=== PATIENT | female | born 1955 | race Caucasian/White ===

== ENCOUNTER 2022-02-25 13:18 | Inpatient (IN) | payer MEDICARE, BC ==
[~2022-02-25] VITALS: Ht 162.6 cm; Wt 59.0 kg
--- NOTE | 2022-02-25 13:38 | NUR ---
BIBRA 99 FROM HOME, PT WAS TAKIN GOUT THE TRASH AND SHE SLIPPED AND FELL. GIVEN 50 MCG IV AND IM FENTANYL. +LEFT HIP SHORT/ ROTATED OUT. AWAITING MD AMEZQUITA.
--- NOTE | 2022-02-25 13:49 | NUR ---
X RAY AT BEDSIDE
[2022-02-25] MEDS ORDERED: ONDANSETRON HCL/PF 4 MG/2 ML VIAL IVP ONE (14:30)
[2022-02-25] MEDS ORDERED: MORPHINE SULFATE INJ 2 MG/ML DISP.SYRIN IV ONE (14:30)
[2022-02-25] MEDS ORDERED: IV NS 0.9% 1,000 ML BAG IV ONE (14:30)
[2022-02-25] MEDS ORDERED: ONDANSETRON HCL/PF 4 MG/2 ML VIAL ONE (14:45)
[2022-02-25] MEDS ORDERED: MORPHINE SULFATE INJ 4 MG/ML DISP.SYRIN ONE (14:45)
--- NOTE | 2022-02-25 14:50 | NUR ---
covid antigen swab done and sent to the lab
[2022-02-25] MEDS ORDERED: BUPR-54 PO (14:51)
[2022-02-25] MEDS ORDERED: ATOM100C2 PO (14:51)
[2022-02-25] MEDS ORDERED: TRAZ-257 PO (14:51)
[2022-02-25] MEDS ORDERED: ATOR10TA PO (14:51)
[2022-02-25 15:01] LABS: BASOPHILS % (AUTO) 0.6 % (0.0-2.0); EOSINOPHILS % (AUTO) 1.4 % (0.0-6.0); HEMATOCRIT 41 % (33-45); HEMOGLOBIN 13.3 g/dL (11.5-14.8); LYMPHOCYTES # (AUTO) 1.4 K/uL (0.8-4.8); LYMPHOCYTES % (AUTO) 21.7 % (20.0-44.0); MEAN CORPUSCULAR HGB CONC 33 g/dl (31.0-36.0); MEAN CORPUSCULAR VOLUME 88 fL (82-100); MONOCYTES # (AUTO) 0.3 K/uL (0.1-1.30); MONOCYTES % (AUTO) 5.2 % (2.0-12.0); NEUTROPHILS # (AUTO) 4.6 K/uL (1.8-8.9); NEUTROPHILS % (AUTO) 71.1 % (43.0-81.0); PLATELET COUNT (AUTO) 313 K/uL (150-450); RED BLOOD CELL COUNT(AUTO) 4.61 MIL/uL (4.0-5.2); WHITE BLOOD COUNT (AUTO) 6.4 K/uL (4.3-11.0)
[2022-02-25 15:16] LABS: ALBUMIN 3.7 g/dL (3.4-5.0); BILIRUBIN,DIRECT 0.1 mg/dL (0.0-0.2); BILIRUBIN,TOTAL 0.3 mg/dL (0.2-1.0); CALCIUM, SERUM 8.7 mg/dL (8.5-10.1); CREATININE 0.7 mg/dL (0.6-1.3); POTASSIUM 3.8 mmol/L (3.5-5.1)
[2022-02-25] MEDS ORDERED: HYDROMORPHONE 1 MG/1 ML DISP.SYRIN ONE (15:30)
[2022-02-25] MEDS ORDERED: HYDROMORPHONE INJ 2 MG/ML DISP.SYRIN IV ONE (16:00)
--- NOTE | 2022-02-25 16:28 | NUR ---
ROOM 320-2
--- NOTE | 2022-02-25 17:02 | NUR ---
REPORT GIVEN TO NURSE MONTANO FOR RU
--- NOTE | 2022-02-25 17:47 | NUR ---
THE PATIENT IS TRANSFERED TO [facility] IN STABLE CONDITION AND PER ACLS POLICY.
--- NOTE | 2022-02-25 18:25 | NUR ---
RN NOTE PATIENT CAME TO UNIT VIA GURNEY WITH NO SIGNS OF DISTRESS FROM ER. REPORT RECEIVED FROM ER NURSE. PATIENT AWAKE IN BED RESTING. A/O X 4. V/S TAKEN, STABLE AND RECORDED T:98.3, P:94, R:20, BP:130/73, O2: 92%. PAIN LEVEL 9/10 NOTED AT THIS TIME, DOCTOR NOTIFIED. ON ROOM AIR, NO DISTRESS OR SHORTNESS OF BREATH NOTED. IV ACCESS LAC #18G, INTACT PATENT AND FLUSHING WELL. ORIENTED PATIENT TO ROOM SET-UP AND EDUCATED PATIENT ON THE USE OF CALL LIGHT. SKIN ASSESSMENT DONE, BRUISE ON LEFR ARM, BRUISE ON RIGHT ARM, PICTURES NEED TO BE TAKEN. FALL AND SAFETY MEASURES IN PLACE, BED ALARM ON, BED IN LOW AND LOCK POSITION, CALL LIGHT AND TABLE WITHIN EASY REACH, SIDE RAILS UP X2. PATIENT NPO AFTER MIDNIGHT FOR SURGERY TOMORROW, LEFT TOTAL HIP ARTHROPLASTY, CONSENT NEEDS TO BE SIGN. WILL CONTINUE TO MONITOR AND WILL ENDORSE TO NEXT SHIFT
[2022-02-25] MEDS ORDERED: MORPHINE SULFATE INJ 2 MG/ML DISP.SYRIN IV PRN (18:30)
[2022-02-25] MEDS ORDERED: IV D5/ 0.9% NACL 1,000 ML IV PRN (18:30)
[2022-02-25] MEDS ORDERED: ACETAMINOPHEN 325 MG TABLET PO PRN (18:30)
[2022-02-25] MEDS ORDERED: ONDANSETRON HCL/PF 4 MG/2 ML VIAL IVP PRN (18:30)
[2022-02-25 19:31] VITALS: BP 149/72
--- NOTE | 2022-02-25 19:35 | NUR ---
RN OPENING NOTE PATIENT AWAKE IN BED. A/OX4. NO S/S OF DISTRESS, BREATHING ON ROOM AIR WITHOUT DIFFICULTY. PAIN NOTED TO BE 10/10. NO PAIN MEDS ORDERED - ON-CALL CONTACTED. ICE PACK PUT IN PLACE FOR COMFORT AND PAIN RELIEF. LAC #18 SL INTACT AND PATENT. SAFETY MEASURES IN PLACE: BED LOCKED AND AT LOWEST POSITION, RAILS UP X2, CALL LEWIS WITHIN REACH. WILL CONTINUE TO MONITOR PATIENT.
[2022-02-25 20:00] VITALS: BP 141/69
[2022-02-25] MEDS ORDERED: HYDROMORPHONE INJ 2 MG/ML DISP.SYRIN IV PRN (21:00)
[2022-02-26] MEDS: HYDROMORPHONE INJ 2 MG/ML DISP.SYRIN IV PRN ×5 (00:05→23:23)
[2022-02-26 06:08] LABS: BASOPHILS % (AUTO) 0.3 % (0.0-2.0); EOSINOPHILS % (AUTO) 1.7 % (0.0-6.0); HEMATOCRIT 40 % (33-45); HEMOGLOBIN 13.6 g/dL (11.5-14.8); LYMPHOCYTES % (AUTO) 13.4 % (20.0-44.0); MEAN CORPUSCULAR HGB CONC 34 g/dl (31.0-36.0); MEAN CORPUSCULAR VOLUME 88 fL (82-100); MONOCYTES # (AUTO) 0.6 K/uL (0.1-1.30); MONOCYTES % (AUTO) 7.4 % (2.0-12.0); NEUTROPHILS % (AUTO) 77.2 % (43.0-81.0); PLATELET COUNT (AUTO) 283 K/uL (150-450); RED BLOOD CELL COUNT(AUTO) 4.57 MIL/uL (4.0-5.2); WHITE BLOOD COUNT (AUTO) 7.8 K/uL (4.3-11.0)
[2022-02-26 06:41] LABS: CALCIUM, SERUM 8.7 mg/dL (8.5-10.1); CREATININE 0.7 mg/dL (0.6-1.3); MAGNESIUM 1.8 mg/dL (1.8-2.4); PHOSPHORUS 3.6 mg/dL (2.5-4.9); POTASSIUM 3.7 mmol/L (3.5-5.1)
--- NOTE | 2022-02-26 07:07 | NUR ---
RN CLOSING NOTE PATIENT AWAKE IN BED. A/0X4. NO S/S OF DISTRESS, BREATHING WITHOUT DIFFICULTY ON ROOM AIR. LAC#18 SL INTACT AND PATENT. SAFETY MEASURES IN PLACE: BED LOCKED AND AT LOWEST POSITION, RAILS UP X2, CALL LEWIS WITHIN REACH. WILL ENDORSE TO NEXT SHIFT FOR RU.
--- NOTE | 2022-02-26 07:30 | NUR ---
RN OPENING NOTE PATIENT AWAKE IN BED RESTING. A/O X 4. PAIN LEVEL 3/10, PAIN MEDICATION GIVEN, ON ROOM AIR, NO DISTRESS OR SHORTNESS OF BREATH NOTED. IV ACCESS LAC #18G, INTACT, PATENT AND FLUSHING WELL. FALL AND SAFETY MEASURES IN PLACE, BED ALARM ON, BED IN LOW AND LOCK POSITION, CALL LIGHT AND TABLE WITHIN EASY REACH, SIDE RAILS UP X2. WILL CONTINUE TO MONITOR.
[2022-02-26 08:00] VITALS: BP 135/68
[2022-02-26] MEDS ORDERED: BUPIVACAINE 0.25% 75 MG/30 ML VIAL ONE (08:12)
--- NOTE | 2022-02-26 11:00 | NUR ---
RN NOTE PATIENT IS NOT IN HER ROOM, PATIENT WAS TAKEN FOR SURGERY (LEFT TOTAL HIP ARTHROPLASTY).
[2022-02-26] MEDS ORDERED: ROCURONIUM BROMIDE 50 MG/5 ML ONE (11:21)
[2022-02-26] MEDS ORDERED: FENTANYL PF 250MCG/5ML AMPUL ONE (11:21)
[2022-02-26] MEDS ORDERED: HYDROMORPHONE INJ 2 MG/ML DISP.SYRIN IV ONE (11:30)
[2022-02-26] MEDS ORDERED: TRANEXAMIC ACID 3,000 MG in SODIUM CHLORIDE IRRIG SOLUTION 70 ML IR ONE (12:00)
[2022-02-26] MEDS ORDERED: FENTANYL PF 100MCG/2ML AMPUL ONE (12:30)
[2022-02-26] MEDS ORDERED: HYDROCODONE/APAP 5/325MG TABLET PO PRN (14:30)
[2022-02-26] MEDS ORDERED: ACETAMINOPHEN 325 MG TABLET PO PRN (14:30)
[2022-02-26] MEDS ORDERED: ONDANSETRON HCL/PF 4 MG/2 ML VIAL IVP PRN (14:30)
[2022-02-26] MEDS ORDERED: DOCUSATE SODIUM 250 MG CAPSULE PO PRN (14:30)
[2022-02-26] MEDS ORDERED: ANESTHESIA TRAY IN PYXIS 1 EA TRAY MC ONE (14:41)
--- NOTE | 2022-02-26 15:15 | NUR ---
RN NOTE PATIENT IS BACK FROM SURGERY. V/S TAKEN, STABLE AND RECORDED. PATIENT IS IN ROOM RESTING COMFORTABLY. WILL CONTINUE TO MONITOR.
[2022-02-26] MEDS: ENOXAPARIN SODIUM 40 MG/0.4 ML DISP.SYRIN SQ SCH (15:55)
[2022-02-26 16:00] VITALS: BP 97/67
[2022-02-26] MEDS: DOCUSATE SODIUM 100 MG CAPSULE PO SCH (17:10)
--- NOTE | 2022-02-26 18:48 | NUR ---
RN CLOSING NOTE PATIENT AWAKE IN BED RESTING. A/O X 4. PAIN LEVEL 3/10, PAIN MEDICATION GIVEN, ON ROOM AIR, NO DISTRESS OR SHORTNESS OF BREATH NOTED. IV ACCESS RIGHT HAND #18G, INTACT, PATENT AND FLUSHING WELL. FALL AND SAFETY MEASURES IN PLACE, BED ALARM ON, BED IN LOW AND LOCK POSITION, CALL LIGHT AND TABLE WITHIN EASY REACH, SIDE RAILS UP X2. WILL ENDORSE TO GRINDER AND PLATER.
--- NOTE | 2022-02-26 19:38 | NUR ---
RN OPENING NOTE PATIENT AWAKE IN BED RESTING. A/O X 4 ON ROOM AIR, NO DISTRESS OR SHORTNESS OF BREATH NOTED. PT REPORTING NAUSEA PRN ZOFRAN GIVEN. IV ACCESS RIGHT HAND #18G, INTACT, PATENT AND FLUSHING WELL. FALL AND SAFETY MEASURES IN PLACE, BED ALARM ON, BED IN LOW AND LOCK POSITION, CALL LIGHT AND TABLE WITHIN EASY REACH, SIDE RAILS UP X2.
[2022-02-26] MEDS ORDERED: ANCEF 1 GM/50 ML D5W IV SCH ×2 (20:00)
--- NOTE | 2022-02-26 21:46 | NUR ---
RN NOTES PT REPORTED ABDOMINAL DISTENTION UPON PERCUSSION ABDOMEN IS TYMPANIC IN ALL FOUR QUADRANTS. PT ALSO REPORTED NAUSEA. ACCOUNTING MACHINE SERVICER BIANCA MADE AWARE RECEIVED NEW ORDER FOR STAT KUB, KUB DONE AND RESULTED, RESULTS REPLAYED TO ACCOUNTING MACHINE SERVICER SHASHA WITH NEW ORDER FOR MALOXX 15ML X ONCE FOR GAS. ORDER NOTED AND GERARDO OUT WILL ADMINISTER SOON VERIFIED BY PHARMACY. WILL CONTINUE TO MONITOR PT.
[2022-02-26] MEDS ORDERED: SENNOSIDES 8.6 MG TABLET PO PRN (22:00)
[2022-02-26] MEDS ORDERED: BISACODYL SUPP (10 MG) 10 MG/SUPP.RECT SUPP.RECT RC PRN (22:00)
[2022-02-26] MEDS ORDERED: MAG HYDROX/AL HYDROX/SIMETH 30 ML UDC PO PRN (22:00)
--- NOTE | 2022-02-26 23:28 | NUR ---
RN NOTES PRN DILAUDID GIVEN FOR 8/10 PAIN TOLERATED WELL. WILL CONTINUE TO MONITOR.
[2022-02-27] MEDS: ZOLPIDEM TARTRATE 5 MG TABLET PO PRN (01:13)
--- NOTE | 2022-02-27 01:22 | NUR ---
RN NOTES PRN ARTURO PROVIDED AT PTS REQUEST. TOLERATED WELL. WILL CONTINUE TO MONITOR.
[2022-02-27 08:00] VITALS: BP 110/63
--- NOTE | 2022-02-27 08:02 | NUR ---
RN OPENING NOTE PATIENT RECEIVED IN BED, AO X 4, S/P LEFT HIP ARTHROPLASTY. ABLE TO RESPONDS ALL STIMULI. IN NO ACUTE DISTRESS NOTED. RESPIRATORY EVEN AND UNLABORED ON ROOM AIR. SKIN IS WARM TO TOUCH, KEEP CLEAN/DRY. KEPT ELEVATED HOB FOR ENSURE AIRWAY AND ASPIRATION PRECAUTION, ALSO LOWEST POSITION OF THE BED, S/R UP X 2, BED ALARM IS ON AT ALL THE TIMES. ALL SAFETY PRECAUTION APPLIED. CALL LIGHT WITHIN REACH, WILL CONTINUE TO MONITOR.
[2022-02-27] MEDS: DOCUSATE SODIUM 100 MG CAPSULE PO SCH ×2 (08:58→17:05)
[2022-02-27] MEDS ORDERED: DOCU100C36 PO (10:02)
[2022-02-27] MEDS ORDERED: ATOMOXETINE HCL 100 MG PO SCH (10:30)
[2022-02-27] MEDS ORDERED: DOCUSATE SODIUM 100 MG CAPSULE PO SCH (10:30)
--- NOTE | 2022-02-27 10:30 | NUR ---
PATIENT TAKEN COLACE 100 MG AT 0900 THIS MORNING, WILL HOLD COLACE 100MG AT 1030.
[2022-02-27 10:35] LABS: BASOPHILS # (AUTO) 0.1 K/uL (0.0-0.2); BASOPHILS % (AUTO) 1.2 % (0.0-2.0); EOSINOPHILS % (AUTO) 0.4 % (0.0-6.0); HEMATOCRIT 29 % (33-45); HEMOGLOBIN 9.7 g/dL (11.5-14.8); LYMPHOCYTES # (AUTO) 1.8 K/uL (0.8-4.8); LYMPHOCYTES % (AUTO) 18.9 % (20.0-44.0); MEAN CORPUSCULAR HGB CONC 34 g/dl (31.0-36.0); MEAN CORPUSCULAR VOLUME 87 fL (82-100); MONOCYTES # (AUTO) 1.1 K/uL (0.1-1.30); MONOCYTES % (AUTO) 11.1 % (2.0-12.0); NEUTROPHILS # (AUTO) 6.6 K/uL (1.8-8.9); NEUTROPHILS % (AUTO) 68.4 % (43.0-81.0); PLATELET COUNT (AUTO) 286 K/uL (150-450); RED BLOOD CELL COUNT(AUTO) 3.29 MIL/uL (4.0-5.2); WHITE BLOOD COUNT (AUTO) 9.6 K/uL (4.3-11.0)
[2022-02-27 10:45] LABS: CALCIUM, SERUM 8.4 mg/dL (8.5-10.1); CREATININE 0.7 mg/dL (0.6-1.3); POTASSIUM 4.3 mmol/L (3.5-5.1)
[2022-02-27] MEDS: BUPROPION XL 150 MG TAB.ER.24 PO SCH (11:38)
[2022-02-27] MEDS: HYDROMORPHONE INJ 2 MG/ML DISP.SYRIN IV PRN ×2 (12:04→21:12)
[2022-02-27 16:00] VITALS: BP 111/69
[2022-02-27] MEDS: ENOXAPARIN SODIUM 40 MG/0.4 ML DISP.SYRIN SQ SCH (16:02)
--- NOTE | 2022-02-27 18:47 | NUR ---
RN CLOSING NOTE PATIENT IN BED RESTING. IN NO ACUTE DISTRESS NOTED. RESPIRATORY EVEN AND UNLABORED ON ROOM AIR. SKIN IS WARM TO TOUCH, KEEP CLEAN/DRY, INTACT IV LINE. KEPT ELEVATED HOB FOR ENSURE AIRWAY AND ASPIRATION PRECAUTION. BED IN LOWEST POSITION AND LOCKED. BED ALARM IS ON AT ALL THE TIMES. ALL SAFETY MEASURED IN PLACED. CALL LIGHT WITHIN REACH, WILL ENDORSED TO NEXT SHIFT.
--- NOTE | 2022-02-27 19:00 | NUR ---
PATIENT SODIUM LEVEL IS 133 AND INFORMED
--- NOTE | 2022-02-27 19:37 | NUR ---
RN OPENING NOTE PATIENT RECEIVED IN BED,AAO X 4,MARIE WELL ON RM AIR NO SIGN SOB/DISTRESS NOTED. S/P LEFT HIP ARTHROPLASTY.PILLOW ABDUCTION IN PLACE.NO COMPLAINE OF PAIN/DISCOMFORT AT THIS TIME. SKIN IS WARM TO TOUCH, KEEP CLEAN/DRY. KEPT ELEVATED HOB FOR ENSURE AIRWAY AND ASPIRATION PRECAUTION,SAFETY MEASURE IN PLACE.BED LOCKED AND LOW POSITION.CALL LIGHT WITHIN REACH.WILL CONTINUE TO MONITOR.
[2022-02-27 20:00] VITALS: BP 131/61
[2022-02-27 20:26] LABS: BASOPHILS % (AUTO) 0.3 % (0.0-2.0); EOSINOPHILS % (AUTO) 0.4 % (0.0-6.0); HEMATOCRIT 28 % (33-45); HEMOGLOBIN 9.5 g/dL (11.5-14.8); LYMPHOCYTES # (AUTO) 2.2 K/uL (0.8-4.8); LYMPHOCYTES % (AUTO) 20.6 % (20.0-44.0); MEAN CORPUSCULAR HGB CONC 34 g/dl (31.0-36.0); MEAN CORPUSCULAR VOLUME 88 fL (82-100); MONOCYTES # (AUTO) 1.1 K/uL (0.1-1.30); MONOCYTES % (AUTO) 10.4 % (2.0-12.0); NEUTROPHILS # (AUTO) 7.5 K/uL (1.8-8.9); NEUTROPHILS % (AUTO) 68.3 % (43.0-81.0); PLATELET COUNT (AUTO) 294 K/uL (150-450); WHITE BLOOD COUNT (AUTO) 10.9 K/uL (4.3-11.0)
[2022-02-27] MEDS: TRAZODONE 50 MG TABLET PO SCH (21:11)
[2022-02-27] MEDS: ATORVASTATIN 10 MG TABLET PO SCH (21:11)
[2022-02-27 22:31] VITALS: BP 132/61
[2022-02-27 22:38] VITALS: BP 131/61
[2022-02-28] MEDS: HYDROMORPHONE INJ 2 MG/ML DISP.SYRIN IV PRN ×5 (02:26→22:42)
--- NOTE | 2022-02-28 02:37 | NUR ---
RN NOTES; PT COMPLAINED OF PAIN 9/10 L HIP FRACTURE.PRN DILAUDED 2MG INJ WAS GIVEN.NO SIGN A/R NOTED.
[2022-02-28 06:07] LABS: BASOPHILS % (AUTO) 0.3 % (0.0-2.0); EOSINOPHILS % (AUTO) 0.4 % (0.0-6.0); HEMATOCRIT 24 % (33-45); HEMOGLOBIN 8.4 g/dL (11.5-14.8); LYMPHOCYTES # (AUTO) 1.5 K/uL (0.8-4.8); LYMPHOCYTES % (AUTO) 20.8 % (20.0-44.0); MEAN CORPUSCULAR HGB CONC 34 g/dl (31.0-36.0); MEAN CORPUSCULAR VOLUME 87 fL (82-100); MONOCYTES # (AUTO) 0.9 K/uL (0.1-1.30); MONOCYTES % (AUTO) 13.1 % (2.0-12.0); NEUTROPHILS # (AUTO) 4.6 K/uL (1.8-8.9); NEUTROPHILS % (AUTO) 65.4 % (43.0-81.0); PLATELET COUNT (AUTO) 213 K/uL (150-450); RED BLOOD CELL COUNT(AUTO) 2.79 MIL/uL (4.0-5.2); WHITE BLOOD COUNT (AUTO) 7.1 K/uL (4.3-11.0)
--- NOTE | 2022-02-28 06:15 | NUR ---
RN CLOSING NOTES; PATIENT IN BED RESTING.AAO X 4,MARIE WELL ON RM AIR NO SIGN SOB/DISTRESS NOTED. S/P LEFT HIP ARTHROPLASTY. ABDUCTION PILLOW IN PLACED.PT WAS COMPLAINED OF PAIN DURING SHIFT.PRN DILAUDED 2MG INJ,WAS GIVEN.NO SIGN A/R NOTED.DUE MEDS GIVEN ORDERED.ALL NEEDS ATTENDED. IV ACCESS ON R HAND 18G PATENT AND INTACT.SAFETY MEASURE IN PLACE.BED LOCKED AND LOW POSITION.CALL LIGHT WITHIN REACH.WILL ENDORSED TO NEXT SHIFT.
[2022-02-28 06:39] LABS: CALCIUM, SERUM 8.4 mg/dL (8.5-10.1); CREATININE 0.7 mg/dL (0.6-1.3); MAGNESIUM 1.9 mg/dL (1.8-2.4); PHOSPHORUS 1.9 mg/dL (2.5-4.9); POTASSIUM 4.4 mmol/L (3.5-5.1)
--- NOTE | 2022-02-28 07:10 | NUR ---
MS RN OPENING NOTES: RECEIVED PATIENT IN BED AWAKE. ALERT AND ORIENTED X 4 AND ABLE TO VERBALIZED NEEDS. NO SOB OR CARDIAC DISTRESS NOTED. ON ROOM AIR AND TOLERATING WELL. WITH IV ACCESS ON RIGHT HAND G18 PATENT, INTACT AND SALINE LOCKED. NOTED WITH HIP ABDUCTOR. NOTED WITH LEFT HIP DRESSING CLEAN AND INTACT WITH NO DISCHARGES. SAFETY PRECAUTIONS MAINTAINED: BED LOCKED AND IN LOWEST POSITION, SIDE RAILS UP X 2, CALL LIGHT IN EASY REACH FOR HELP. WILL MONITOR PATIENT FOR ANY SIGNIFICANT CHANGES.
[2022-02-28 08:00] VITALS: BP_SYST 118; BP_SYST 135; BP_DIAS 55; BP_DIAS 70
[2022-02-28] MEDS: BUPROPION XL 150 MG TAB.ER.24 PO SCH (08:22)
[2022-02-28] MEDS: DOCUSATE SODIUM 100 MG CAPSULE PO SCH ×2 (08:23→16:43)
--- NOTE | 2022-02-28 09:42 | NUR ---
rn notes: PATIENT SEEN WITH PHYSICAL THERAPIST WALKING WITH WALKER AROUND THE UNIT. PATIENT TOLERATED WELL.
[2022-02-28] MEDS: ZOLPIDEM TARTRATE 5 MG TABLET PO PRN ×2 (14:36→16:33)
[2022-02-28] MEDS: ENOXAPARIN SODIUM 40 MG/0.4 ML DISP.SYRIN SQ SCH (15:24)
[2022-02-28] MEDS ORDERED: K PHOS NEUTRAL 250 MG TABLET PO ONE (15:30)
[2022-02-28 16:00] VITALS: BP_SYST 119; BP_DIAS 67; BP_DIAS 69
--- NOTE | 2022-02-28 16:00 | NUR ---
RN NOTES: PROVIDED SPONGE BATH TO PATIENT. ORAL CARE DONE.
--- NOTE | 2022-02-28 18:43 | NUR ---
MS RN CLOSING NOTES: PATIENT IN BED AWAKE. ALERT AND ORIENTED X 4 AND ABLE TO VERBALIZED NEEDS. NO SOB OR CARDIAC DISTRESS NOTED. ON ROOM AIR AND TOLERATING WELL. WITH IV ACCESS ON RIGHT HAND G18 PATENT, INTACT AND SALINE LOCKED. NOTED WITH HIP ABDUCTOR ON AND OFF. NOTED WITH LEFT HIP DRESSING CLEAN AND INTACT WITH NO DISCHARGES. SAFETY PRECAUTIONS MAINTAINED: BED LOCKED AND IN LOWEST POSITION, SIDE RAILS UP X 2, CALL LIGHT IN EASY REACH FOR HELP. WILL MONITOR PATIENT FOR ANY SIGNIFICANT CHANGES. ENDORSED TO DIAGNOSTIC CARDIAC SONOGRAPHER FOR RU.
--- NOTE | 2022-02-28 19:25 | NUR ---
MS RN OPENING NOTES: PATIENT IN BED AWAKE. ALERT AND ORIENTED X 4 AND ABLE TO VERBALIZED NEEDS. NO SOB OR CARDIAC DISTRESS NOTED. ON ROOM AIR AND TOLERATING WELL. PT DID REPORT PAIN PRN DILAUDID WILL BE GIVEN.WITH IV ACCESS ON RIGHT HAND G18 PATENT, INTACT AND SALINE LOCKED. NOTED WITH HIP ABDUCTOR ON AND OFF. NOTED WITH LEFT HIP DRESSING CLEAN AND INTACT WITH NO DISCHARGES. SAFETY PRECAUTIONS MAINTAINED: BED LOCKED AND IN LOWEST POSITION, SIDE RAILS UP X 2, CALL LIGHT IN EASY REACH FOR HELP. WILL MONITOR PATIENT FOR ANY SIGNIFICANT CHANGES.
[2022-02-28 20:00] VITALS: BP 145/80
--- NOTE | 2022-02-28 22:21 | NUR ---
MS RN NOTES PT IV ACCESS INFILTRATED IV REMOVED ARM ELEVATED NEW IV ACCESS RFA #22G. WILL CONTINUE TO MONITOR.
--- NOTE | 2022-02-28 22:47 | NUR ---
MS RN NOTES PRN DILAUDID GIVEN FOR 9/10 PAIN IN A NUMERIC PAIN SCALE TOLERATED WELL.
[2022-02-28] MEDS: TRAZODONE 50 MG TABLET PO SCH (23:28)
[2022-02-28] MEDS: ATORVASTATIN 10 MG TABLET PO SCH (23:28)
--- NOTE | 2022-03-01 06:46 | NUR ---
MS RN CLOSING NOTES: PATIENT IN BED ASLEEP. NO SOB OR CARDIAC DISTRESS NOTED. ON ROOM AIR AND TOLERATING WELL. WITH IV ACCESS ON RFA #22G, INTACT AND SALINE LOCKED. NOTED WITH HIP ABDUCTOR ON AND OFF. NOTED WITH LEFT HIP DRESSING CLEAN AND INTACT WITH NO DISCHARGES. SAFETY PRECAUTIONS MAINTAINED: BED LOCKED AND IN LOWEST POSITION, SIDE RAILS UP X 2, CALL LIGHT IN EASY REACH FOR HELP. WILL ENDORSE CARE TO DAY SHIFT NURSE.
--- NOTE | 2022-03-01 07:30 | NUR ---
MS RN OPENING NOTES RECEIVED PATIENT ON BED AWAKE AND A/O X4. ON ROOM AIR TOLERATING WELL. NO SOB NOTED. NOT IN DISTRESS. WITH NO COMPLAINTS OF PAIN OR DISCOMFORT AT THIS TIME. S/P HIP ARTHROPLASTY. WITH IV ACCESS AT THE RIGHT FOREARM G22 SALINE LOCKED, PATENT AND INTACT. SAFETY MEASURES IN PLACED. CALL LIGHT WITHIN REACH. BED ON LOWEST LOCKED POSITION, SIDE RAILS UP X2. WILL CONTINUE TO MONITOR.
[2022-03-01 07:51] LABS: CALCIUM, SERUM 8.5 mg/dL (8.5-10.1); CREATININE 0.6 mg/dL (0.6-1.3); PHOSPHORUS 2.8 mg/dL (2.5-4.9); POTASSIUM 4.2 mmol/L (3.5-5.1)
[2022-03-01] MEDS: DOCUSATE SODIUM 100 MG CAPSULE PO SCH ×2 (08:37→16:20)
[2022-03-01] MEDS: BUPROPION XL 150 MG TAB.ER.24 PO SCH (08:37)
[2022-03-01] MEDS: HYDROMORPHONE INJ 2 MG/ML DISP.SYRIN IV PRN ×2 (08:40→13:53)
[2022-03-01 09:54] VITALS: BP 121/64
[2022-03-01] MEDS: ENOXAPARIN SODIUM 40 MG/0.4 ML DISP.SYRIN SQ SCH (15:05)
[2022-03-01 16:27] VITALS: BP 129/70
--- NOTE | 2022-03-01 17:59 | NUR ---
MS HEAVY ANTIARMOR [employer]ANTRYMAN NOTES PATIENT WAS SEEN BY DR. CLARK AND ORDERED PATIENT FOR DISCHARGE TO [facility]. [facility] GAVE [facility] TO ROXIE MCCANN. DISCHARGE INSTRUCTION AND EDUCATION PROVIDED TO THE PATIENT. PATIENT VERBALIZED UNDERSTANDING. DISCHARGE FORM AND BELONGINGS LIST FORM SIGNED BY PATIENT. PICKED UP BY AMBULANCE PERSONNEL VIA GURNEY IN STABLE CONDITION. MD AND CHARGE NURSE ARE AWARE OF THE DISCHARGE.
== END 2022-03-01 18:00 | DRG 522 ==
LOC: ER 13:20 → MED 20:12
PROVIDERS: ADMIT Nurse Practitioner Acute Care; ATTEND Nurse Practitioner Acute Care
PROC: 0SRB0JZ Replacement of Left Hip Joint with Synthetic Substitute, Open Approach (ICD-10-PCS; principal; 2022-02-26)
DX: S72.032A Displaced midcervical fracture of left femur, initial encounter for closed fracture (principal); D68.59 Other primary thrombophilia; Z20.822 Contact with and (suspected) exposure to COVID-19; W01.0XXA Fall on same level from slipping, tripping and stumbling without subsequent striking against object, initial encounter; Y92.098 Other place in other non-institutional residence as the place of occurrence of the external cause; F32.A Depression, unspecified; M19.90 Unspecified osteoarthritis, unspecified site; Z79.899 Other long term (current) drug therapy; M81.0 Age-related osteoporosis without current pathological fracture; E78.5 Hyperlipidemia, unspecified; Z74.09 Other reduced mobility
CPT/HCPCS: 36415; 71045-TC; 72170-TC; 73502; 73700-TC; 74018; 80048-TC; 80061-TC; 80076-TC; 83735-TC; 84100-TC; 85025-TC; 85730-TC; 97116-TC; 97530-TC; A4217; C1776; C9803; G0378; J0330; J0690; J1100; J1170; J1650; J1885; J2270; J2405; J2704; J3010; J3490; J7030; J7060